=== PATIENT | female | born 2000 | race Caucasian/White ===

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

== ENCOUNTER 2018-02-06 23:05 | Emergency (ER) | END 2018-02-07 01:36 | disposition home or self-care (01) ==

== ENCOUNTER 2019-02-12 00:07 | Emergency (ER) | payer BC ==
[~2019-02-12] VITALS: Ht 170.2 cm; Wt 60.5 kg
[~2019-02-12 00:07] MED LIST changes: +CEPH-443 PO; +CLOT21CR6 VAGINAL; +CLOT30CR24 TOP; +FLUC150T PO; +METR70GE15 VAG; +OSEL75CA23 PO; -OSLT75C PO
[2019-02-12 00:12] VITALS: BP 129/75; PULSE 118; RESP 20; Ht 170.2 cm; Wt 60.5 kg
[2019-02-12] MEDS ORDERED: LIDOCAINE 2%/EPI MPF (SDV) 20 ML VIAL INJ STA (00:53)
[2019-02-12] MEDS ORDERED: ACETAMINOPHEN 325 MG TAB PO STA (00:53)
[2019-02-12] MEDS ORDERED: SULF1TAB31 PO (01:54)
[2019-02-12] MEDS ORDERED: CEPH-443 PO (01:55)
[2019-02-12] MEDS ORDERED: FLUC150T PO (01:56)
--- NOTE | 2019-02-14 15:02 | ERD ---
ER Documentation Chief Complaint Chief Complaint pain/swelling right buttock area x 4 days HPI 18yo F presents for evaluation of swelling to right buttock x 4 days. Pt states to believe to have been bitten by an insect to the right buttock 4 days ago and over the past few days has noticed increased swelling, redness, and pain to the area. Pt rates the pain as an 8/10 which prevents her from sitting and driving. She has not taken any medication to alleviate her pain [employer] TE[employer]. She denies fevers, chills, sweats, SOB, tongue or lip swelling, or wheezes. ROS All systems reviewed and are negative except as per history of present illness. Medications Home Meds Active Scripts Fluconazole* (Diflucan*) 150 Mg Tablet, 150 MG PO ONCE, #1 TAB Prov:TOMEKA RDZ PA-C 02/12/19 Cephalexin* (Keflex*) 500 Mg Capsule, 500 MG PO QID for 10 Days, #40 CAP Prov:TOMEKA RDZ PA-C 02/12/19 Sulfamethoxazole/Trimethoprim* (Bactrim Ds* Tablet) 1 Each Tablet, 1 TAB PO BID for 10 Days, #14 TAB Prov:TOMEKA RDZ PA-C 02/12/19 Clotrimazole (Clotrimazole 3) 21 Gm Cream.appl, 1 APPFUL VAGINAL QHS for 7 Days, #1 TUB Prov:GREER RODRÍGUEZ NP 02/07/18 Clotrimazole* (Clotrimazole* AF) 1% - 30 Gm Cream.gm., 1 APPLIC TOP BID for 7 Days, TUB Prov:GREER RODRÍGUEZ NP 02/07/18 Fluconazole* (Diflucan*) 150 Mg Tablet, 150 MG PO ONCE, #1 TAB Prov:GREER RODRÍGUEZ NP 02/07/18 Fluconazole* (Diflucan*) 150 Mg Tablet, 150 MG PO ONCE, #1 TAB Prov:AIDEE HER 03/03/17 Metronidazole* (Metrogel* Vaginal) 0.75% -70 Gram Gel.w.appl, 1 APPFUL VAG BID for 7 Days, TUB Prov:AIDEE HER 03/03/17 Cephalexin* (Keflex*) 500 Mg Capsule, 500 MG PO BID for 7 Days, CAP Prov:AIDEE HER 03/03/17 Oseltamivir Phosphate* (Tamiflu*) 75 Mg Capsule, 75 MG PO BID for 5 Days, CAP Prov:IAN RAMIREZ DO 10/09/16 Allergies Allergies: Coded Allergies: aspirin (Verified Allergy, Mild, 10/09/16) PMhx/Soc Medical and Surgical Hx: pt denies Medical Hx, pt denies Surgical Hx History of Surgery: No Anesthesia Reaction: No Hx Neurological Disorder: No Hx Respiratory Disorders: No Hx Cardiac Disorders: No Hx Psychiatric Problems: No Hx Miscellaneous Medical Probl: No Hx Alcohol Use: No Hx Substance Use: No Hx Tobacco Use: No Smoking Status: Never smoker Physical Exam Vitals Vital Signs Date Temp Pulse Resp B/P (MAP) Pulse Ox O2 O2 Flow FiO2 Time Delivery Rate 02/12/19 98.2 118 20 129/75 98 00:12 (93) Physical Exam Const: No acute distress Head: Atraumatic Eyes: Normal Conjunctiva ENT: Normal External Ears, Nose and Mouth. Skin: No petechiae or rashes. 0gqx1lm round fluctuant lesion to right buttock with minimal surrounding erythema. No discharge, no warmth. Tender to palpation. Ext: No cyanosis, or edema Neur: Awake and alert Psych: Normal Mood and Affect Results 24 hrs Laboratory Tests Test 02/12/19 00:46 POC Beta HCG, Qualitative NEGATIVE Current Medications Medications Dose Sig/Derick Start Time Status Last (Trade) Ordered Route PRN Stop Time Admin Dose Reason Admin Lidocaine/ 20 ml ONCE STAT 02/12/19 DC Epinephrine INJ 00:53 (Xylocaine 02/12/19 00:55 2%/ Epi Mpf(Sdv)) 650 mg ONCE STAT 02/12/19 DC 02/12/19 Acetaminophen PO 00:53 01:52 (Tylenol 02/12/19 00:55 Tab) Procedures/MDM Abscess Incision and Drainage with irrigation by me: Location: Right buttock Anesthesia: Local 1% Lidocaine Technique: Irrigated. Disrupted loculations w/ instrumentation Packing: None Complications: Neurovascularly intact post procedure 48 hour wound check. Scar minimization instructions given. MDM: Patient presents with 2 by 2cm erythematous, fluctuant lesion over the right buttock, consistent with an abscess. Erythema is localized. No associated cellulitis. Area was disinfected with betadine, anesthetized with Lidocaine 1%. Moderate amount of purulent discharge was expressed with incision and drainage. Patient tolerated the procedure well. *Will be providing Rx for Keflex and Bactrim to cover for potential MRSA. Pt expressed concern over possible yeast infection d/t abx use and rx Diflucan also given. Advised to only take if symptoms develop, and only after finishing abx. Wound care instructions discussed as well as follow up instructions. At this time I have low suspicion for NV compromise and SEPSIS. Patient is stable for discharge home and outpatient management at this time, advised to follow-up with PCP in 1-2 days. Strict return precautions discussed. Departure Diagnosis: Primary Impression: Abscess Condition: Stable Patient Instructions: Abscess, Incision And Drainage TOMEKA RDZ PA-C Feb 14, 2019 15:02
== END 2019-02-12 02:09 | disposition home or self-care (01) ==
LOC: FTE 00:07
DX: L02.31 Cutaneous abscess of buttock (principal)
CPT/HCPCS: 81025